=== PATIENT | male | born 1990 | race Caucasian/White ===

== ENCOUNTER → 2021-01-06 | Outpatient (CLI) | payer MEDICAID ==
[2021-01-06 17:54] LABS: Basophils # (A) 0.06 X 10*3/uL (0.00-0.10); Basophils % (A) 0.9 %; Eosinophils % (A) 1.5 %; HCT 46.9 % (39.6-50.0); HGB 15.1 g/dL (13.0-17.0); Lymphocytes # (A) 1.66 X 10*3/uL (0.90-5.00); Lymphocytes % (A) 25.4 %; MCH 28.5 pg (27.0-32.0); MCHC 32.2 g/dL (32.0-37.0); MCV 88.7 fL (80.0-97.0); Mean Platelet Volume 9.4 fL (9.5-12.2); Monocytes # (A) 0.63 X 10*3/uL (0.20-1.00); Monocytes % (A) 9.6 %; Neutrophils # (A) 4.08 X 10*3/uL (1.80-7.70); Neutrophils % (A) 62.4 %; Platelet Count 403 X 10*3/uL (140-440); RBC 5.29 X 10*6/uL (4.40-5.60); RDW 12.2 % (11.5-14.5); WBC 6.54 X 10*3/uL (4.50-10.00)
[2021-01-06 22:34] LABS: African American GFR (CKD) 133.3 (60.0-200.0); Albumin 4.8 g/dL (3.80-4.90); Albumin/Globulin Ratio 1.6 (1.60-3.17); BUN/Creat Ratio 14.44 Ratio (12.00-20.00); Chol/HDL Ratio 3.77; LDL Cholesterol,Calculated 130.4 mg/dL (0.0-131.0); Potassium 4.1 mmol/L (3.5-5.5); Total Bilirubin 0.6 mg/dL (0.2-1.2); Total Protein 7.8 g/dL (6.2-8.2); VLDL Calculation 16.6 mg/dL (5.00-40.00)
== END | disposition home or self-care (01) ==
LOC: LABWHC1 08:33
PROVIDERS: ATTEND Family Medicine
DX: I10 Essential (primary) hypertension (principal)
CPT/HCPCS: 36415; 80053; 80061; 85025

== ENCOUNTER 2022-04-10 16:09 | Emergency (ER) | payer MEDICAID ==
[2022-04-10 16:15] VITALS: BP 190/100; PULSE 100; RESP 20; TEMP 98
[2022-04-10] MEDS ORDERED: FLUORESCEIN STRIPS 1 MG STRIP RIGHT EYE ONE (16:21)
[2022-04-10] MEDS ORDERED: PROPARACAINE 0.5% OPHTH DROPS 15 ML BTL RIGHT EYE STA (16:25)
--- NOTE | 2022-04-10 16:28 | ED ---
Eye Problem HPI - General Chief complaint: Eye Problems Stated complaint: R eye issue Time Seen by Provider: 04/10/22 16:16 Source: patient, RN notes reviewed Mode of arrival: ambulatory Limitations: no limitations - History of Present Illness Initial comments: This is a 31 year old male who presents to the emergency department with right eye irritation. 1 month ago he poked his eye with a stick when he was walking through the [place]. He had pain for a couple of days and afterwards had no problems. Yesterday he noticed that his eye was increasingly red and his lid was matted shut. He had associated watering of the eye. Denies any associated pain or itching. He has no visual changes in that eye either. Denies any upper respiratory symptoms or ear pain. Denies any fevers, chills, sore throat, cough, dyspnea, chest pain, palpitations, abdominal pain, nausea, vomiting, diarrhea, back pain, or headaches. MD chief complaint: eye redness Onset/Timin -: days(s) Onset Description: sudden Location: right eye If Injury: none - Related Data Previous Rx's Medication Instructions Recorded Hydrocodone/Acetaminophen [[place] 1 - 2 each PO Q6HR PRN #30 tab 07/18/14 5-325] Ondansetron Odt [Zofran Odt] 4 mg PO Q8HR PRN #10 tab 07/18/14 Tamsulosin [Flomax] 0.4 mg PO DAILY #10 cap 07/18/14 Allergies Allergy/AdvReac Type Severity Reaction Status Date / Time No Known Allergies Allergy Verified 07/18/14 03:53 Review of Systems ROS Statement: Those systems with pertinent positive or pertinent negative responses have been documented in the HPI. ROS Other: All systems not noted in ROS Statement are negative. Past Medical History Additional Past Medical History / Comment(s): kidney stones 11/2012 History of Any Multi-Drug Resistant Organisms: None Reported Past Surgical History: No Surgical Hx Reported Past Psychological History: No Psychological Hx Reported Smoking Status: Never smoker Past Alcohol Use History: None Reported Past Drug Use History: None Reported General Exam Limitations: no limitations General appearance: alert, in no apparent distress Head exam: Present: atraumatic, normocephalic, normal inspection Eye exam: Present: PERRL, EOMI, conjunctival injection (right). Absent: scleral icterus, periorbital swelling, periorbital tenderness Pupils: Present: normal accommodation ENT exam: Present: normal oropharynx, mucous membranes moist, TM's normal bilaterally, normal external ear exam Neck exam: Present: normal inspection. Absent: tenderness, meningismus, lymphadenopathy Respiratory exam: Present: normal lung sounds bilaterally. Absent: respiratory distress, wheezes, rales, rhonchi, stridor Cardiovascular Exam: Present: regular rate, normal rhythm, normal heart sounds. Absent: systolic murmur, diastolic murmur, rubs, gallop, clicks Neurological exam: Present: alert, oriented X3, CN II-XII intact Psychiatric exam: Present: normal affect, normal mood Skin exam: Present: warm, dry, intact, normal color. Absent: rash Course Vital Signs 04/10/22 16:12 Temperature 98 F Pulse Rate 100 Respiratory 20 Rate Blood Pressure 190/100 O2 Sat by Pulse 98 Oximetry Medical Decision Making - Medical Decision Making This is a 31 year old male who presents to the emergency department for right eye irritation. Fluorescein staining performed, which did identify a corneal abrasion to the right eye. This is somewhat surprising given that the patient is not experiencing any pain. Due to the possible corneal abrasion, will put the patient on a five-day course of sulfacetamide eyedrops. He was given a bottle in the emergency department as opposed to a prescription due to his pharmacy being closed today. Discussed the possibility of a viral, bacterial, or allergicc conjunctivitis as well. He can treat his other symptoms with [id number] treatment such as antihistamines in the form of eyedrops or tablets. Also suggested lubricating eyedrops if he finds that his eyes feel dry. Ibuprofen and Tylenol can be used if he experiences any pain. Warm or cool compresses can be used for any additional irritation or if the eye feels matted shut. Follow-up with ophthalmology was provided to reevaluate his symptoms and healing status. Instructed him to contact their office in the morning. Return precautions reviewed in depth, the patient is instructed to return to the emergency department with any new, worsening, or concerning symptoms. Patient verbalized understanding. This case was discussed in detail with the attending ED physician. Presentation, findings, and treatment plan discussed in detail as well. Disposition Clinical Impression: Corneal abrasion, Conjunctivitis Disposition: HOME SELF-CARE Instructions (If sedation given, give patient instructions): Corneal Abrasion (ED), Conjunctivitis (ED) Additional Instructions: Return to the emergency department with any new, worsening, or concerning symptoms. Use the sulfacetamide drops as 2 drops in the right eye four times daily. If the eye becomes itchy or excessivley watery, you can take over the counter antihistamines such as Benadryl or Zantac or use antihistamine eye drops. If it becomes painful, you can take Ibuprofen and Tylenol. Contact the eye doctor listed below for a follow up appointment to ensure that the eye heals. Apply cool compresses to the eye for additional relief and if it is matted shut. Is patient prescribed a controlled substance at d/c from ED?: No Referrals: Daniel Yusuf MD [Medical Doctor] - 1-2 days Eze Mckenna MD [STAFF PHYSICIAN] - 1-2 days
[2022-04-10] MEDS ORDERED: SULFACETAMIDE SOD 10% OPHTH DROPS 15 ML BTL RIGHT EYE SCH (17:00)
== END 2022-04-10 17:10 | disposition home or self-care (01) ==
LOC: EC 16:09 → SUPCPDRO 16:09 → EC 17:10
DX: S05.01XA Injury of conjunctiva and corneal abrasion without foreign body, right eye, initial encounter (principal); H10.9 Unspecified conjunctivitis; W45.0XXA Nail entering through skin, initial encounter
CPT/HCPCS: 99283

== ENCOUNTER → 2023-05-05 | Outpatient (CLI) | payer MEDICAID ==
[2023-05-06 02:17] LABS: Basophils # (A) 0.05 X 10*3/uL (0.00-0.10); Basophils % (A) 0.7 %; Eosinophils # (A) 0.13 X 10*3/uL (0.04-0.35); Eosinophils % (A) 1.8 %; HCT 43.1 % (39.6-50.0); HGB 14.1 g/dL (13.0-17.0); Lymphocytes # (A) 2.31 X 10*3/uL (0.90-5.00); Lymphocytes % (A) 31.1 %; MCH 28.8 pg (27.0-32.0); MCHC 32.7 g/dL (32.0-37.0); MCV 88.1 FL (80.0-97.0); Mean Platelet Volume 9.8 FL (9.5-12.2); Monocytes # (A) 0.52 X 10*3/uL (0.20-1.00); NRBC Per 100 WBC 0 X 10*3/uL (0.00-0.01); Neutrophils % (A) 59.3 %; Platelet Count 385 X 10*3/uL (140-440); RBC 4.89 X 10*6/uL (4.40-5.60); RDW 12.1 % (11.5-14.5); WBC 7.42 X 10*3/uL (4.50-10.00)
[2023-05-06 03:33] LABS: Creatinine 24 Hour,Urine 2.25 g/24hr (1.00-2.00)
== END | disposition home or self-care (01) ==
LOC: LABWHC1 15:31
PROVIDERS: ATTEND Internal Medicine
DX: Z11.59 Encounter for screening for other viral diseases (principal); I10 Essential (primary) hypertension
CPT/HCPCS: 36415; 81050; 82085; 82384; 82533; 82570; 84244; 84443; 84585; 85025; 86803

== ENCOUNTER → 2023-05-06 | Outpatient (CLI) | payer MEDICAID ==
[2023-05-06 23:03] LABS: Chol/HDL Ratio 4.02 Ratio
== END | disposition home or self-care (01) ==
LOC: LABWHC1 09:07
PROVIDERS: ATTEND Internal Medicine
DX: I10 Essential (primary) hypertension (principal)
CPT/HCPCS: 36415; 80061

== ENCOUNTER → 2023-06-09 | Outpatient (CLI) | payer MEDICAID ==
--- NOTE | 2023-06-09 10:03 | US ---
EXAMINATION TYPE: US renal artery duplex complet DATE OF EXAM: 06/09/2023 COMPARISON: 01/05/2015 CLINICAL INDICATION: Male, 33 years old with history of I10 ESSENTIAL (PRIMARY) HYPERTENSION; Control led with medications; Patient denies any other signs or symptoms at this time MEASUREMENTS: RENAL SIZE: Right Kidney: 11.3 x 6.7 x 6.1 cm Left Kidney: 11.5 x 6.8 x 5.6 cm Right Kidney: Stones seen at lower pole Left Kidney: WNL Abd Aorta: Limited visualization due to overlying bowel gas; Distal and bifurcation only visible in RLD RESISTANCE INDEX Right: 0.72 Left: 0.70 RA/AO RATIO (< 3.5 ) Right: 0.4 Left: 0.5 RENAL ARTERY VELOCITY ( < 180 cm/s) Right: 63 Left: 74 Repair Specialist Notes: Difficult exam due to overlying bowel gas. Right mid renal artery not visualized in supine or LLD. Doppler waveforms appear normal IMPRESSION: 1. No suspicious abnormality to suggest significant renal artery stenosis
== END | disposition home or self-care (01) ==
LOC: RADUSWWP 08:00
PROVIDERS: ATTEND Internal Medicine
DX: I10 Essential (primary) hypertension (principal)
CPT/HCPCS: 93975

== ENCOUNTER → 2024-12-16 | Outpatient (CLI) | payer MEDICAID ==
[2024-12-16 10:44] LABS: ALT 108 U/L (10-49); AST 48 U/L (14-35); Albumin 4.7 g/dL (3.8-4.9); Albumin/Globulin Ratio 1.57 Ratio (1.60-3.17); Alkaline Phosphatase 99 U/L (41-126); Anion Gap 12.30 mmol/L (4.00-12.00); BUN/Creat Ratio 12.33 Ratio (12.00-20.00); Blood Urea Nitrogen 11.1 mg/dL (9.0-27.0); Calcium 9.9 mg/dL (8.7-10.3); Carbon Dioxide 24.7 mmol/L (21.6-31.8); Chloride 105 mmol/L (96-109); Cholesterol 226.00 mg/dL (0.00-200.00); Globulin 3.0 g/dL (1.6-3.3); Glucose 96 mg/dL (70-110); HDL Cholesterol 54.40 mg/dL (40.00-60.00); LDL Cholesterol,Calculated 147.2 mg/dL (0.0-131.0); Magnesium 2.1 mg/dL (1.5-2.4); Potassium 4.8 mmol/L (3.5-5.5); Sodium 142 mmol/L (135-145); Total Protein 7.7 g/dL (6.2-8.2); Triglycerides 122.00 mg/dL (0.00-149.00); VLDL Calculation 24.40 mg/dL (5.00-40.00)
[2024-12-16 12:50] LABS: Basophils # (A) 0.08 X 10*3/uL (0.00-0.10); Basophils % (A) 1.1 %; Eosinophils # (A) 0.15 X 10*3/uL (0.04-0.35); Eosinophils % (A) 2.0 %; HCT 47.0 % (39.6-50.0); HGB 15.2 g/dL (13.0-17.0); Immature Grans, Automated 0.30 %; Lymphocytes # (A) 2.06 X 10*3/uL (0.90-5.00); Lymphocytes % (A) 27.8 %; MCH 28.4 pg (27.0-32.0); MCHC 32.3 g/dL (32.0-37.0); MCV 87.7 FL (80.0-97.0); Monocytes # (A) 0.58 X 10*3/uL (0.20-1.00); Monocytes % (A) 7.8 %; NRBC Per 100 WBC 0 X 10*3/uL (0.00-0.01); Neutrophils # (A) 4.52 X 10*3/uL (1.80-7.70); Neutrophils % (A) 61.0 %; Platelet Count 458 X 10*3/uL (140-440); RBC 5.36 X 10*6/uL (4.40-5.60); RDW 12.1 % (11.5-14.5); WBC 7.41 X 10*3/uL (4.50-10.00)
== END | disposition home or self-care (01) ==
LOC: LABWHC1 07:20
PROVIDERS: ATTEND Internal Medicine
DX: Z00.00 Encounter for general adult medical examination without abnormal findings (principal); I10 Essential (primary) hypertension
CPT/HCPCS: 36415; 80053; 80061; 83735; 84443; 85025